=== PATIENT | male | born 1965 | race Caucasian/White ===

== ENCOUNTER 2024-10-03 06:23 | Day surgery (SDC) | payer OTHER, SELFPAY | END 2024-10-03 13:28 | disposition home or self-care (01) | LOC: GI 06:23 | PROVIDERS: ATTENDING PHYSICIAN Internal Medicine Gastroenterology | DX: K22.2 Esophageal obstruction (principal); K22.89 Other specified disease of esophagus; K44.9 Diaphragmatic hernia without obstruction or gangrene; K31.89 Other diseases of stomach and duodenum; R13.10 Dysphagia, unspecified | CPT/HCPCS: 43239; 88305; 88342 ==